=== PATIENT | male | born 1970 | race Caucasian/White ===

== ENCOUNTER 2019-07-29 22:03 | Observation (INO) | payer MEDICARE, MEDICAID, SELFPAY ==
[2019-07-29 22:09] VITALS: BP 121/80; PULSE 55; RESP 16; TEMP 36.7; O2SAT 98; BMI 24.3
[2019-07-29 23:13] VITALS: BP 129/85; PULSE 68; RESP 18; TEMP 37; O2SAT 99
--- NOTE | 2019-07-30 01:19 | W.ED.PSYCH ---
HPI - Psych General: Chief Complaint: Psychiatric Symptoms Stated Complaint: psych/ si Time Seen by Provider: 07/29/19 22:18 History of Present Illness: HPI Narrative: 49-year-old male identifying is a female named Missy presents as a transfer/direct admit to our [facility] with required screening in the ER. He is currently not under 96-hour hold, and was described as a voluntary admission. He had taken by the outside facility's report 5050 mg hydroxyzine, and 5025 mg hydroxyzine and an intentional overdose. The patient tells me he took 1250 mg hydroxyzine so that he could rest following being upset regarding a discussion with his who is in group home. He denies suicidality at this time. MD complaint: feels depressed Onset (ago): day(s) (1) Duration: constant Relieving factors: none Exacerbating factors: none Context: recent drug abuse and significant life stressor Associated psychiatric symptoms: depression Associated symptoms: Reports depression; Deny visual hallucinations or homicidal ideation If self harm: intentional overdose Review of Systems Const: Denies: fever(s) or chills Eyes: Denies: change in vision ENMT: Denies: change in hearing, post nasal drip or sinus pain Card: Denies: chest pain, palpitations or irregular heart rhythm Resp: Denies: dyspnea, productive cough, non-productive cough or wheezing GI: Denies: abdominal pain, nausea or vomiting : Denies: difficulty urinating Skin/Breast: Denies: rash or pruritus Neuro: Denies: headache(s), dizziness or vertigo Psych: Reports: depression; Denies: visual hallucinations or homicidal ideation [facility] ED PFSH: Social History Smoking and tobacco status: current every day smoker Physical Exam Const: GENERAL APPEARANCE: well developed ORIENTATION/CONSCIOUSNESS: Yes oriented to person, Yes oriented to place and Yes oriented to time HENMT: COMMON NORMALS: normocephalic, external ears normal and Normal external nose present HEAD & SCALP: normocephalic FACE & SINUS: normal facial exam NOSE: Normal external nose present and No nasal discharge present EXTERNAL EAR: Yes external ears normal MOUTH: tongue normal Eye: COMMON NORMALS: Equal, round and reactive pupils present, EOMs intact bilaterally and conjunctivae normal EYELID: eyelids normal CONJUNCTIVA: Yes conjunctivae normal PUPIL: Yes Equal, round and reactive pupils present Neck/C-Spine: GENERAL: No tracheal deviation Chest: COMMONS NORMALS: normal inspection of the chest Resp: EFFORT & INSPECTION: No tachypneic, No respiratory distress, No retractions, No uses accessory muscles and No tracheal deviation Cardio: COMMON NORMALS: regular rate and regular rhythm RATE: regular rate RHYTHM: regular rhythm Neuro: SENSORIUM/ORIENTATION: Yes oriented to person, Yes oriented to place and Yes oriented to time Psych: COMMON NORMALS: Normal thought process present ATTITUDE: Yes Belligerent attititude/behavior present ACTIVITY/MOTOR BEHAVIOR: Yes appropriate eye contact SPEECH: Yes excessive MOOD & AFFECT: Yes Labile affect present THOUGHT PROCESS: Normal thought process present ATTENTION/CONCENTRATION: Yes attention grossly intact INSIGHT: questionable JUDGEMENT: Poor judgement present (Psych) Skin: COMMON NORMALS: no rashes or lesions noted GENERAL SKIN EXAM: no rashes or lesions noted MDM - Psych MDM Narrative: Medical decision making narrative: 49-year-old male transferred through the ER on the way to [facility] as a direct admit. On his arrival to the ER, he stated that he wanted to leave and signed out AGAINST MEDICAL ADVICE. He said that he came here voluntarily and can sign out voluntarily. This patient was [place] as a direct admit [place] 165 [place] to this facility. Though he says he only took 12 hydroxyzine, and not 100, he still admits to taking more than the prescribed amount of hydroxyzine which constitutes very poor judgment. This is essentially an intentional overdose by definition. He was given the option of staying and remaining voluntary, and seeing the psychiatrist in the morning, or affidavit being written as well as 96-hour hold paperwork being drawn up. He at first became quite belligerent, threatening legal actions amongst other things, and was quite verbally abusive to myself and my staff. In the end, he went willingly to the [facility] to be evaluated by psychiatry in the morning. His laboratory from outside facility appears stable. His drug screen was positive for methamphetamine. Discharge Plan Discharge Patient Disposition: Admitted As Inpatient Admit Provider: Joce Mcduffie Clinical Impression: Intentional overdose of drug in tablet form Condition: Stable Discharge Date/Time: 07/29/19 23:19 Coding Level of Care Code ED Branch Logistics Supervisor for [facility] Fwd Exam Comprehensive
[2019-07-30 06:00] VITALS: RESP 19
--- NOTE | 2019-07-30 07:02 | PC.NURSE ---
Patient was pacing arce. Staff asked patient if vitals could be taken. Patient replied, I guess. I don't know why though. Staff explained that we vitals around 10pm and 6am. Patient then stated, Don't get mouthy with me. then removed the blood pressure cup and threw in the floor. Staff took respirations on patient.
[2019-07-30] MEDS: sertraline 100 mg Tablet PO (08:00)
[2019-07-30] MEDS: LORazepam 2 mg Tablet PO (08:00)
--- NOTE | 2019-07-30 08:53 | PM.SDS ---
Short Stay Summary Providers Date of Admit/Discharge: 07/30/19 Attending Provider: Joce Mcduffie MD Chief Complaint: psych/ si HPI History of Present Illness Hernandez Maria is a 49 year old male who identifies himself as female. He apparently got into an argument with his , now in detention, who accused him of infidelity. He says is not true, it upset him and he took an overdose of hydroxyzine. He says that 3 days ago he was angry and impulsive but no longer feels that way. He now denies homicidal or suicidal ideation, plan or intent. I sat down with him and went over the questionnaire for an AMA document, which he signed after I explained to him he would, upon leaving AGAINST MEDICAL ADVICE, relieved the hospital, its personnel and all departments of any responsibility for his wellbeing or health care. He said he understood, and affirmed that he now (3 days later) has no suicidal or homicidal ideation, plan or intent. Review of Systems General: Reports: 10 or more systems reviewed and unremarkable except in HPI and below and ROS unobtainable due to mental status GI: Reports: abdominal pain (Diffuse abdominal pain. Examining physician was unable to localize it. It is attributed to his overdose. And is now resolved.) and nausea (Appears to be attendant to the above discussed overdose. Now resolved.) Psych: Reports: anxiety, depression (He is dysphoric and sad about his relationship with his , now in detention, who accuses him of infidelity.), mood swings (The patient gets precipitously angry when he feels we do not care, which we do but are unable to convince him.), suicidal ideation (3 days ago he took an overdose but now denies any suicidal ideation, plan or intent.) and homicidal ideation (The patient has never had any homicidal ideation, plan or intent.) Home Meds/Allergies Home Medications and Allergies Home Medications Medication Instructions Recorded Confirmed Type Zoloft 100 mg PO DAILY 07/29/19 07/30/19 History Zyprexa 10 mg PO QPM 07/30/19 07/30/19 History albuterol sulfate 2 puff INHALATION QID PRN 07/30/19 07/30/19 History Allergies Allergy/AdvReac Type Severity Reaction Status Date / Time aspirin Allergy Unknown Verified 07/29/19 22:09 chlorpromazine Allergy Unknown Verified 07/29/19 22:09 [From Thorazine] ibuprofen Allergy Unknown Verified 07/29/19 22:09 naproxen Allergy Unknown Verified 07/29/19 22:09 Penicillins Allergy Unknown Verified 07/29/19 22:09 PFSH Acute PFSH: Social History Smoking and tobacco status: current every day smoker Vitals/I&O/Wt Last Vital Signs Temp 98.6 F 07/29/19 23:13 Pulse 68 07/29/19 23:13 Resp 19 H 07/30/19 06:00 BP 129/85 07/29/19 23:13 Pulse Ox 99 07/29/19 23:13 Weight last 48 hrs Weight 165 lb Physical Exam Narrative: EXAM NARRATIVE: Vital signs and nursing note reviewed. This is a 49-year-old male identified as female who is in no acute distress, is well-developed and not ill-appearing. Head normocephalic and atraumatic. Eyes pupils equal regular reactive to light. Extraocular movements intact. Neck supple no bruits no thyromegaly. Heart normal sinus rhythm. Chest clear to auscultation pulmonary effort is normal. Abdomen, nausea and abdominal pain as described above. No rebound tenderness or organomegaly. Extremities no cyanosis, clubbing or edema. Normal range of motion. Skin shows no lesions or rash. Skin is warm and dry. Neurological: Cranial nerves II to XII intact; no cerebellar, sensory or motor deficit noted. Psych: COMMON NORMALS: Normal thought process present, activity/motor behavior normal, denies hallucinations, denies homicidal ideation and denies suicidal ideation APPEARANCE: Yes grossly normal and Yes disheveled ATTITUDE: Yes engaged and Yes uncooperative ACTIVITY/MOTOR BEHAVIOR: Yes appropriate eye contact SPEECH: Yes loud MOOD & AFFECT: Yes irritable THOUGHT PROCESS: Normal thought process present THOUGHT CONTENT: Yes Normal thought content present ATTENTION/CONCENTRATION: Yes attention grossly intact MEMORY/COGNITION: Yes memory grossly intact INSIGHT: Fair insight present (Psych) JUDGEMENT: Fair judgement present (Psych) OTHER: The patient has a cognitive wherewithal by which she can competently sign out AGAINST MEDICAL ADVICE. Hospital Course Admission Diagnoses: Suicidal overdose. Borderline personality disorder. Hospital Course: This was a crisis intervention. The crisis has faded and he wants his [employer] interests returned to him. Discharge Summary: AGAINST MEDICAL ADVICE Diagnoses at Discharge Discharge Diagnosis (1) Intentional overdose of drug in tablet form: Status: Acute Problem details: The patient has resolved his immediate crisis. He denies suicidal ideation, plan or intent. (2) Borderline personality disorder: Status: Acute Problem details: The patient was in crisis, denies suicidal ideation, plan or intent and is competent to sign out AGAINST MEDICAL ADVICE, about which he is been extensively educated. He nonetheless will wants his [employer] interest to be returned to him. Discharge Plan Discharge Patient Disposition: Home, Self-Care Condition: Stable Prescriptions: Continued Zoloft 100 mg Tablet 100 mg PO DAILY RF: 0 Zyprexa 10 mg Tablet 10 mg PO QPM RF: 0 albuterol sulfate 90 mcg/actuation Hfa Aerosol Inhaler 2 puff INHALATION QID PRN (Reason: Shortness Of Breath) RF: 0 Discharge Orders: Discharge Order (Routine); Ordered 07/30/19 Ordered By: Gabriel Rios Discharge Diet: Usual diet Discharge Activity: Resume usual activity Discharge Date/Time: 07/30/19 09:07 Attestations Medical Necessity Statement*: Given the information provided to us by referring hospital. This was clearly an admission necessitated by the need to evaluate this patient. Time Spent in Patient Care*: critical care time (At least 50 minutes spent in critical intervention with this patient.) Critical Care Time (min): 50 Status at Discharge: Cognitive status at discharge: cognitively intact, Behavioral status at discharge: cooperative and can be uncooperative, Functional status at discharge: independent ambulation Overall status at discharge: patient is progressing back to baseline Quality Metrics Clinical Quality Measures: During this hospital stay, did patient experience: None Coding Level of Care Code Acute Name [facility] for [facility] Fwd Diagnoses Intentional overdose of drug in tablet form T50.902A Borderline personality disorder F60.3
--- NOTE | 2019-07-30 08:57 | PC.RESP ---
Smoking Cessation information packet sent to patient with a schedule of classes.
[2019-07-30 09:06] VITALS: RESP 19
== END 2019-07-30 09:07 | disposition home or self-care (01) ==
LOC: ER 22:57 → NP 07-30 01:36
PROVIDERS: Admitting Provider Psychiatry & Neurology Psychiatry; Visit Provider Psychiatry & Neurology Psychiatry
DX: T50.902A Poisoning by unspecified drugs, medicaments and biological substances, intentional self-harm, initial encounter (principal); F60.3 Borderline personality disorder; Z53.29 Procedure and treatment not carried out because of patient's decision for other reasons; F17.210 Nicotine dependence, cigarettes, uncomplicated; R10.84 Generalized abdominal pain
CPT/HCPCS: 12345; 36415; 80053; 83690; 85025; 96361; 96374; 96375; 96376; 99283; 99284; G0378; J2270; J2405; J2930; J3535; J7030

== ENCOUNTER 2019-07-30 10:39 | Emergency (ER) | payer MEDICARE, MEDICAID, SELFPAY ==
[2019-07-30 10:52] VITALS: BP 136/70; PULSE 86; RESP 16; TEMP 36.8; O2SAT 98
--- NOTE | 2019-07-30 10:59 | W.ED.NAVMDI ---
HPI - Nausea/Vomiting/Diarrhea General: Chief complaint: Nausea/Vomiting/Diarrhea Stated complaint: N/V Time Seen by Provider: 07/30/19 10:53 Source: patient Mode of arrival: ambulatory Limitations: no limitations History of Present Illness: HPI Narrative: 49-year-old male who has a history of Crohn's disease states that he has been having nausea vomiting abdominal pain feels like he has a Crohn's flare. Patient denies any fevers or improving or worsening factors. He states pain is cramping in nature and rates it a 2 out of 10. MD elicited complaint: nausea, vomiting and abdominal pain Associated nausea: Yes Associated symtoms: Reports nausea; Denies chest pain, dysuria or headache(s) Review of Systems Const: Denies: fever(s), chills, body aches or change in appetite Eyes: Denies: blurry vision or eye discomfort ENMT: Denies: throat pain or dental pain Card: Denies: chest pain Resp: Denies: dyspnea GI: Reports: abdominal pain, nausea and vomiting : Denies: dysuria Musc: Denies: neck pain or back pain Skin/Breast: Denies: rash Neuro: Denies: headache(s) Psych: Denies: depression Alonso/Lymph: Denies: easy bruising All/Imm: Denies: urticaria PFSH ED PFSH: Social History Smoking and tobacco status: current every day smoker Physical Exam Const: COMMON NORMALS: no acute distress, patient oriented x3 and healthy appearing HENMT: COMMON NORMALS: normocephalic and atraumatic HEAD & SCALP: normocephalic and atraumatic Eye: COMMON NORMALS: Equal, round and reactive pupils present and EOMs intact bilaterally PUPIL: Yes Equal, round and reactive pupils present Neck/C-Spine: COMMON NORMALS: full ROM and supple Chest: COMMONS NORMALS: normal inspection of the chest and normal palpation of entire chest wall Resp: COMMON NORMALS: normal respiratory effort, No retractions, No use of accessory muscles and clear to auscultation bilaterally AUSCULTATION: clear to auscultation bilaterally Cardio: COMMON NORMALS: regular rate, regular rhythm and No murmurs present (Cardio) RATE: regular rate RHYTHM: regular rhythm GI: COMMON NORMALS: Normal to inspection, nondistended, normoactive bowel sounds present, Soft to palpation, non-tender and no masses PALPATION: Yes Soft to palpation Extremity: COMMON NORMALS: normal to inspection and full ROM Neuro: COMMON NORMALS: patient oriented x3, moves all extremities and no focal motor deficits Psych: COMMON NORMALS: mental status grossly normal, Normal thought process present and cooperative THOUGHT PROCESS: Normal thought process present Skin: COMMON NORMALS: no rashes or lesions noted and no wounds GENERAL SKIN EXAM: no rashes or lesions noted Course Vital Signs: Vital signs: Vital Signs Temperature 98.2 F 07/30/19 10:52 Pulse Rate 61 07/30/19 11:00 Respiratory Rate 18 07/30/19 11:34 Blood Pressure 129/77 07/30/19 11:00 Pulse Oximetry 99 07/30/19 11:00 MDM - Nausea/Vomiting/Diarrhea MDM Narrative: Medical decision making narrative: Patient presents with abdominal pain that is chronic in nature likely from Crohn's. Patient is well-appearing here and exam is benign. Patient's blood work is normal. Patient is stable for discharge and is to follow-up with primary care doctor in 3 to 5 days return if worsening. Lab Data: Labs: Lab Results 07/30/19 07/30/19 Range/Units 11:30 11:30 WBC 6.6 (4.0-10.0) 10^3/ uL RBC 4.27 (4.1-5.3) 10^6/u L Hgb 11.9 (11.7-16.6) g/dL Hct 38.9 L (42.0-52.0) % MCV 91.1 (80-94) fL MCH 27.9 L (28.0-34.0) pg MCHC 30.6 (30.0-36.0) g/dL RDW 13.9 (12.1-15.1) % Plt Count 259 (130-400) 10^3/c mm MPV 10.1 (7.4-10.4) fL Neut % (Auto) 71.2 % Lymph % (Auto) 17.9 % [place] % (Auto) 6.8 % Eos % (Auto) 2.3 % Baso % (Auto) 0.3 % Neut # (Auto) 4.7 (1.8-7.7) 10^3/u L Lymph # (Auto) 1.2 (0.8-4.8) 10^3/u L [place] # (Auto) 0.5 (0.2-0.9) 10^3/u L Eos # (Auto) 0.2 (0.0-0.8) 10^3/u L Baso # (Auto) 0.0 (0.0-0.1) 10^3/u L Nucleated RBC % (a uto) 0 % Nucleated RBCs # 0.0 /100WBC Sodium 134 L (136-145) mmol/L Potassium 4.4 (3.5-5.1) mmol/L Chloride 99 (98-107) mmol/L Carbon Dioxide 24 (22-29) mmol/L Anion Gap 15.4 (5-19) BUN 15 (6-20) mg/dL Creatinine 0.6 L (0.7-1.2) mg/dL GFR Calculation 144.4 H (90-130) mL/min Glucose 93 (65-115) mg/dL Calculated Osmolal ity 274 L (285-295) mOsm/k g Calcium 9.2 (8.5-10.5) mg/dL Total Bilirubin 0.2 (0.15-1.2) mg/dL AST 14 (0-40) U/L ALT 16 (0-41) U/L Alkaline Phosphata se 70 (40-130) IU/L Total Protein 6.8 (6.6-8.7) g/dL Albumin 3.8 (3.5-5.2) g/dL Globulin 3.0 (1.3-4.6) g/dL Lipase 39 (13-60) U/L Discharge Plan Discharge Patient Disposition: Home, Self-Care Clinical Impression: Abdominal pain Qualifiers: Abdominal location: generalized Qualified Code(s): R10.84 - Generalized abdominal pain Condition: Stable Prescriptions: No Action sertraline [Zoloft] 100 mg Tablet 100 mg PO DAILY RF: 0 olanzapine [Zyprexa] 10 mg Tablet 10 mg PO QPM RF: 0 albuterol sulfate 90 mcg/actuation Hfa Aerosol Inhaler 2 puff INHALATION QID PRN (Reason: Shortness Of Breath) RF: 0 prednisone 20 mg tablet 60 mg PO DAILY RF: 0 alprazolam 0.5 mg tablet 0.5 mg PO DAILY PRN (Reason: unknown) RF: 0 promethazine 25 mg tablet 25 mg PO Q6H PRN (Reason: Nausea) RF: 0 Discharge Orders: Discharge Order (Routine); Ordered 07/30/19 Ordered By: Ezequiel Osorio Discharge Diet: Advance as tolerated Discharge Activity: Resume usual activity Patient Instructions: Abdominal Pain (ED) Coding Level of Care Code ED Lumber Cutter for [facility] Fwd Exam Comprehensive
[2019-07-30 11:00] VITALS: BP 129/77; PULSE 61; RESP 18; O2SAT 99
[2019-07-30] MEDS: sodium chloride 0.9% 1,000 ML 999 ML IV (11:33)
[2019-07-30 11:34] VITALS: RESP 18
[2019-07-30] MEDS: ondansetron 2 mg/ML SDV 2 mL 4 MG IVP (11:34)
[2019-07-30] MEDS: morphine 4 mg/mL SDV 1 mL IVP ×2 (11:34→13:16)
[2019-07-30 11:50] LABS: Basophils % 0.3 %; Eosinophils # 0.2 10^3/uL (0.0-0.8); Eosinophils % 2.3 %; Hematocrit 38.9 % (42.0-52.0); Hemoglobin 11.9 g/dL (11.7-16.6); Lymphocytes # 1.2 10^3/uL (0.8-4.8); Lymphocytes % 17.9 %; Mean Corpuscular HGB Conc 30.6 g/dL (30.0-36.0); Mean Corpuscular Hemoglobin 27.9 pg (28.0-34.0); Mean Corpuscular Volume 91.1 fL (80-94); Mean Platelet Volume 10.1 fL (7.4-10.4); Monocytes # 0.5 10^3/uL (0.2-0.9); Monocytes % 6.8 %; Neutrophils # 4.7 10^3/uL (1.8-7.7); Neutrophils % 71.2 %; Nucleated Red Blood Cells % 0 %; Platelet Count 259 10^3/cmm (130-400); Red Blood Count 4.27 10^6/uL (4.1-5.3); Red Cell Distribution Width 13.9 % (12.1-15.1); White Blood Count 6.6 10^3/uL (4.0-10.0)
[2019-07-30 12:04] LABS: Alanine Aminotransferase 16 U/L (0-41); Albumin Level 3.8 g/dL (3.5-5.2); Alkaline Phosphatase 70 IU/L (40-130); Anion Gap 15.4 (5-19); Aspartate Amino Transferase 14 U/L (0-40); Blood Urea Nitrogen 15 mg/dL (6-20); Calcium 9.2 mg/dL (8.5-10.5); Carbon Dioxide 24 mmol/L (22-29); Chloride 99 mmol/L (98-107); Glomerular Filtration Rate 144.4 mL/min (90-130); Glucose 93 mg/dL (65-115); Lipase 39 U/L (13-60); Osmolality Calculated 274 mOsm/kg (285-295); Potassium 4.4 mmol/L (3.5-5.1); Sodium 134 mmol/L (136-145); Total Bilirubin 0.2 mg/dL (0.15-1.2); Total Protein 6.8 g/dL (6.6-8.7)
[2019-07-30 13:16] VITALS: RESP 18
[2019-07-30 13:41] VITALS: BP 127/77; RESP 18
--- NOTE | 2019-07-30 15:26 | DCPLANNER ---
manager mechanical seen patient, due to patient request. manager mechanical spoke with patient, was asked for a list of resources for that area that helped with housing, the phone number to [facility]. manager mechanical called [facility], transferred phone call into patients room, so that patient could do the phone interview. Patient did not meet criteria to go to [facility]. manager mechanical gave patient the phone number to [facility] and some other low rent housing phone numbers. manager mechanical was then asked to get the phone number to [facility] in [facility], counter caser called the assisted was told to call back. Patient called a assisted in [place] and was told that they were not accepting any patients outside of their county due to the Covid. Patient stated that he wanted to go to his aunts house in [place]. manager mechanical gave the address to patients nurse for the medicaid transportation. Patient no longer wanted the phone number to [facility].
== END 2019-07-30 13:31 | disposition home or self-care (01) ==
PROVIDERS: Emergency Provider Emergency Medicine
DX: R10.84 Generalized abdominal pain (principal); F17.210 Nicotine dependence, cigarettes, uncomplicated
CPT/HCPCS: 12345; 36415; 80053; 83690; 85025; 96361; 96374; 96375; 96376; 99283; J2270; J2405; J2930; J7030

== ENCOUNTER 2020-09-01 10:30 | Inpatient (IN) | payer MEDICARE, SELFPAY ==
[2020-09-01 10:33] VITALS: BP 102/77; PULSE 82; RESP 18; TEMP 36.8; O2SAT 98
[2020-09-01 14:00] VITALS: BP 118/74; PULSE 69; RESP 20; TEMP 36.9; O2SAT 99
--- NOTE | 2020-09-01 16:45 | PM.NHP ---
Providers/Chief Complaint Admitting Physician: Joce Mcduffie MD [facility] NPU History of Present Illness Hernandez Maria is a 50 year old male presented to an outside hospital endorsing suicidality reporting that he does not feel like he wants to go home. He endorsed that if he was discharged he would not be able to keep himself safe. He was transferred to [facility] and ultimately admitted to the neuropsychiatric unit for definitive treatment of those issues. Today he presents quite irritable and a very poor historian. First of all he identifies himself as transgender 7 this point forward I will speak with him as Missy and his pronoun is she. She reports that she has probably been hospitalized 9 times in the first 1 being in 1992 and the last one being about a year ago. She reports that she gets her treatment in [place] often in the [facility] system. She reports being on prazosin and Zoloft BuSpar and one other medication. She reports smoking about half a pack of cigarettes a day denies alcohol, endorses marijuana but denies any other illicit drug use. But it actually said that she would start answering questions a different way because she was mad at this auto service writer for asking questions so the actual answer about illicit drug use was maybe, going to rehab was maybe in no response about having a DUI. She reports having about 4 suicide attempts in her life but did not endorse when the last one was. She does endorse significant suicidal thoughts but could not give any reason why things were worse now after going a year without being in the hospital. She would not discuss medication changes but I did explain that I would explore the current medications and make recommendations. Psychiatric history: As above. Substance abuse history: As above. Family history: He denied family history of mental health or addiction issues but did report a history of suicide attempts or completions in the family but without the specifics. Developmental history: There were no problems with the , or delivery, learned to walk and talk and met developmental milestones on time, and denies need for speech therapy, learning support, emotional support or special education classes. Psychosocial history: She reports that her parents were together and that she is the only product of that union. She endorses that her childhood was fine and denies any emotional, physical or sexual abuse. She denied getting her high school diploma reporting her GED. She reports being a transfemale with her longest relationship being 5 years. She never been , she never had children, she never done and she denies any hoahaoism Kristopher system. She reports that she never had a job. When asked about living arrangements she reported none of my business. Legal history: She reported there was none of my business about her legal history. Medical history: Denied. Meds NPU Home Medications Medication Instructions Recorded Confirmed Last Taken Type sertraline [Zoloft] 100 mg PO DAILY 07/29/19 07/30/19 07/30/19 History albuterol sulfate 2 puff INHALATION QID PRN 07/30/19 07/30/19 07/27/19 History alprazolam 0.5 mg PO DAILY PRN 07/30/19 07/30/19 Unknown History olanzapine [Zyprexa] 10 mg PO QPM 07/30/19 07/30/19 07/27/19 History prednisone 60 mg PO DAILY 07/30/19 07/30/19 07/30/19 History promethazine 25 mg PO Q6H PRN 07/30/19 07/30/19 Unknown History Allergies Allergy/AdvReac Type Severity Reaction Status Date / Time aspirin Allergy Unknown Verified 07/30/19 11:43 chlorpromazine Allergy Unknown Verified 07/30/19 11:43 [From Thorazine] ibuprofen Allergy Unknown Verified 07/30/19 11:43 ketorolac [From Toradol] Allergy ALGY-Rash Verified 07/30/19 11:43 naproxen Allergy Unknown Verified 07/30/19 11:43 Penicillins Allergy Unknown Verified 07/30/19 11:43 PFSH NPU PFSH: Social History Smoking and tobacco status: current every day smoker Mental Status Exam MSE Comments: This is a well-nourished, well-developed white transfemale in hospital scrubs with limited grooming and eye contact. No abnormal movements except for psychomotor retardation and some psychomotor agitation with questions. Uncooperative with exam in moderate distress at times. Speech was increased rate and volume. Mood described as past at you, affect congruent. Thought process organized. Thought content: Patient endorsed suicidal but denied homicidal ideation, there were no delusions reported noted, she denied any auditory visualizations. Attention and concentration were intact and memory appeared reliable but none were formally tested. She is alert and oriented x3. Insight and judgment are impaired, impulse control is impaired. Vitals/I&O/Wt Last Vital Signs Temp 98.4 F 09/01/20 14:00 Pulse 69 09/01/20 14:00 Resp 20 H 09/01/20 14:00 BP 118/74 09/01/20 14:00 Pulse Ox 99 09/01/20 14:00 Weight last 48 hrs Weight 76.657 kg A&P Assessment and plan (1) History of bipolar disorder: Status: Acute (2) Borderline personality disorder: Status: Acute Additional A&P Information This is a 50-year-old white transfemale with a long history of mental health and possible addiction issues who presents endorsing lethality but not giving much background to the symptoms and essentially being a hostile witness for the entirety of the exam. 1. Continue current medication. 2. Continue every 15 minute checks for safety. 3. Encourage individual, group and milieu therapies. 4. Encourage sober living treatment after discharge at the highest level of care to which he is willing to commit. Involuntary Hold Information 96 Hour Hold: 96 Hour Involuntary Admission: No Attestations NPU Medical Necessity Statement*: Inpatient hospitalization is medically necessary and the clinically appropriate intervention at this time. We will monitor medications and make changes as indicated. Patient will be in the hospital for over two midnights. Likely length of stay 3 to 5 days. Coding Level of Care Code Acute [employer] Service Team Member for Kate Palacios Diagnoses History of bipolar disorder Z86.59 Borderline personality disorder F60.3
[2020-09-01 20:54] VITALS: BP 113/66; PULSE 63; RESP 15; TEMP 36.4; O2SAT 99
[2020-09-02 06:00] VITALS: BP 115/67; PULSE 62; RESP 16; TEMP 37.1; O2SAT 95
--- NOTE | 2020-09-02 13:00 | P.PN_ITS ---
Mental Status Exam MSE Comments: This is a well-nourished, well-developed white transfemale in hospital scrubs with limited grooming and eye contact. No abnormal movements except for psychomotor retardation and some psychomotor agitation with questions. Uncooperative with exam in moderate distress at times. Speech was increased rate and volume. Mood described as past at you, affect congruent. Thought process organized. Thought content: Patient endorsed suicidal but denied homicidal ideation, there were no delusions reported noted, she denied any auditory visualizations. Attention and concentration were intact and memory appeared reliable but none were formally tested. She is alert and oriented x3. Insight and judgment are impaired, impulse control is impaired. Vitals/I&O/Wt Last Vital Signs Temp 98.8 F 09/02/20 06:00 Pulse 62 09/02/20 06:00 Resp 16 09/02/20 06:00 BP 115/67 09/02/20 06:00 Pulse Ox 95 09/02/20 06:00 Weight last 48 hrs Weight 76.657 kg Involuntary Hold Information 96 Hour Hold: 96 Hour Involuntary Admission: No Attestations NPU Medical Necessity Statement*: Inpatient hospitalization is medically necessary and the clinically appropriate intervention at this time. We will monitor medications and make changes as indicated. Patient will be in the hospital for over two midnights. Likely length of stay 3 to 5 days. Coding Level of Care Code Acute [facility] Wellness Coordinator for Kate Palacios
--- NOTE | 2020-09-02 13:44 | P.DS_ITS ---
Diagnoses at Discharge Discharge Diagnosis (1) History of bipolar disorder: Status: Acute (2) Borderline personality disorder: Status: Acute Permanent problem details: The patient was in crisis, denies suicidal ideation, plan or intent and is competent to sign out AGAINST MEDICAL ADVICE, about which he is been extensively educated. He nonetheless will wants his [place] interest to be returned to him. Reason for Visit Reason for Visit: Brief History: History of Present Illness Hernandez Maria is a 50 year old male presented to an outside hospital endorsing suicidality reporting that he does not feel like he wants to go home. He endorsed that if he was discharged he would not be able to keep himself safe. He was transferred to [facility] and ultimately admitted to the neuropsychiatric unit for definitive treatment of those issues. Today he presents quite irritable and a very poor historian. First of all he identifies himself as transgender 7 this point forward I will speak with him as Missy and his pronoun is she. She reports that she has probably been hospitalized 9 times in the first 1 being in 1992 and the last one being about a year ago. She reports that she gets her treatment in [place] often in the [facility] system. She reports being on prazosin and Zoloft BuSpar and one other medication. She reports smoking about half a pack of cigarettes a day denies alcohol, endorses marijuana but denies any other illicit drug use. But it actually said that she would start answering questions a different way because she was mad at this typewriter tester for asking questions so the actual answer about illicit drug use was maybe, going to rehab was maybe in no response about having a DUI. She reports having about 4 suicide attempts in her life but did not endorse when the last one was. She does endorse significant suicidal thoughts but could not give any reason why things were worse now after going a year without being in the hospital. She would not discuss medication changes but I did explain that I would explore the current medications and make recommendations. Psychiatric history: As above. Substance abuse history: As above. Family history: He denied family history of mental health or addiction issues but did report a history of suicide attempts or completions in the family but without the specifics. Developmental history: There were no problems with the , or delivery, learned to walk and talk and met developmental milestones on time, and denies need for speech therapy, learning support, emotional support or special education classes. Psychosocial history: She reports that her parents were together and that she is the only product of that union. She endorses that her childhood was fine and denies any emotional, physical or sexual abuse. She denied getting her high school diploma reporting her GED. She reports being a transfemale with her longest relationship being 5 years. She never been , she never had children, she never done and she denies any alevism Kristopher system. She reports that she never had a job. When asked about living arrangements she reported none of my business. Legal history: She reported there was none of my business about her legal history. Medical history: Denied. Hospital Course Hospital Course Missy presented to an outside hospital endorsing depression and suicidality. She was transferred to [facility] and ultimately admitted to the neuropsychiatric unit for definitive treatment of those issues. She slowly acclimated to the individual, group and milieu therapies provided. She was able to talk to her significant other with whom she had been fighting and was the nidus for her decline. She reported that they were doing better and she was feeling better. She did not require or request any medications or changes in her current treatment. She was evaluated and deemed to be absent lethality and was able to contract for safety prior to discharge. She demonstrated marked improvement. During the hospitalization, patient had routine laboratory studies which were within normal limits except for few outliers. Additionally there was a general medical evaluation which was also within normal limits and revealed no new acute processes. Discharge Summary: At the time of discharge, psychosis and lethality were denied. Mood and anxiety were well managed. Patient endorsed a plan to avoid all drugs of abuse and follow-up with the aftercare recommendations of the treatment team. Patient was evaluated and deemed to be absent credible lethality, and had achieved the maximum benefit from an inpatient hospitalization, so was discharged. Involuntary Hold Information 96 Hour Hold: 96 Hour Involuntary Admission: No Mental Status Exam MSE Comments: This is a well-nourished, well-developed white trans female in hospital scrubs with limited grooming and eye contact. No abnormal movements. Uncooperative with exam in no acute distress. Speech was normal rate and volume. Mood described as much better, affect congruent. Thought process organized. Thought content: Patient denied suicidal or homicidal ideation, there were no delusions reported noted, she denied any auditory visualizations. Attention and concentration were intact and memory appeared reliable but none were formally tested. She is alert and oriented x3. Insight and judgment are limited but improving, impulse control is limited but improving. Discharge Data Vitals: Last Vital Signs Temp 98.8 F 09/02/20 06:00 Pulse 62 09/02/20 06:00 Resp 16 09/02/20 06:00 BP 115/67 09/02/20 06:00 Pulse Ox 95 09/02/20 06:00 Discharge Plan Discharge Patient Disposition: Home Condition: Stable Prescriptions: Continued No Known Home Medications RF: 0 Discharge Orders: Discharge Order (Routine); Ordered 09/02/20 Ordered By: Joce Mcduffie Discharge Diet: Regular Discharge Activity: Resume usual activity Patient Instructions: Opioid Safety Discharge Attestations NPU Time Spent in Discharge Care*: less than 30 min Specific Discharge Activities: Specific discharge activities: educating patient, discussing with therapeutic case manager/social workers/dc planners, documenting/other paperwork and evaluating patient/reviewing data Status at Discharge: Cognitive status at discharge: cognitively intact , Behavioral status at discharge: cooperative and can be uncooperative , Coding Level of Care Code Acute [facility] DC note Diagnoses History of bipolar disorder Z86.59 Borderline personality disorder F60.3
[2020-09-02 13:55] VITALS: BP 115/67; PULSE 62; RESP 16; TEMP 37.1; O2SAT 95
== END 2020-09-02 15:02 | disposition home or self-care (01) | DRG 885 ==
PROVIDERS: Admitting Provider Psychiatry & Neurology Psychiatry; Visit Provider Psychiatry & Neurology Psychiatry
DX: F31.9 Bipolar disorder, unspecified (principal); R45.851 Suicidal ideations; F60.3 Borderline personality disorder; F17.200 Nicotine dependence, unspecified, uncomplicated; Z91.19 Patient's noncompliance with other medical treatment and regimen; Z91.5 Personal history of self-harm; Z81.8 Family history of other mental and behavioral disorders

== ENCOUNTER 2020-09-17 11:43 | Inpatient (IN) | payer MEDICARE, SELFPAY ==
[2020-09-17 11:51] VITALS: BMI 25.9
[2020-09-17 11:52] VITALS: BP 101/68; PULSE 105; RESP 17; TEMP 36.5; O2SAT 96
--- NOTE | 2020-09-17 13:28 | P.HP_ITS ---
Providers/Chief Complaint Admitting Physician: Sid Flaherty MD Chief Complaint: si HPI NPU History of Present Illness Hernandez Maria is a 50 year old male to female transgendered individual who wishes to be addressed as Missy, who was transferred from [facility] for treatment of suicidal ideation after being medically stabilized. The [facility] ED note states: Patient arrived to [facility] ED via EMS with chief complaint of suicidal ideations. During assessment patient was alert and oriented x4. Patient reports that she became suicidal earlier today and devised a plan to overdose on meth injection. Patient reports that she has experienced multiple recent stressors that contribute to her depressed mood and increased suicidal ideations. Patient declined discussing details of recent stressors or specific suicidal thoughts other than the plan. Patient reports previous diagnoses that include bipolar disorder and schizophrenia. Patient denies any current HI or hallucinations. Patient denies alcohol use and reports methamphetamine is the only drug being used. Patient meets criteria for inpatient psychiatric admission. Lab done at [facility] on 09/16/2020 shows: UDS was positive for amphetamines and negative for all other substances tested. CBC showed mild normocytic anemia. CMP was essentially normal. EKG was reported to be NSR/normal ECG, QTC equal 399 ms. I met with the patient and her room, and she was only minimally cooperative with the evaluation. She says, life is too painful. She says that she developed suicidal ideation after a relationship ended, but is unwilling to say more about the situation, other than her heart hurts and she is now significantly depressed. She does report disturbance in sleep, appetite, energy, motivation, concentration, as well as feelings of hopelessness, helplessness and worthlessness. She denies auditory and visual hallucinations. She says she takes her medications regularly although she does not feel like they provide any benefit, and neither do they produce any side effects. She was discharged from here on 08/30/2020, although these records not available at this time. It appears there have been other psychiatric hospitalizations, include 2 other in the last few months. She receives outpatient treatment through [facility]. The patient says that she injects meth daily. She denies using alcohol, pills, or other drugs. She says she smokes 3 cigarettes/day. Psychiatric history: As above. Substance use history: As above. Family history: Patient denies mental health or addiction issues on either side of the family and denies suicide attempts or completions in the family. Psychosocial history: The patient says she grew up in [place], went to the 11th grade, was once and had no children. Legal history: Declined to answer Medical history: Patient declined to answer. [facility] records state there is a past medical history of anxiety, coronary artery disease, colitis, COPD, Crohn's disease, depression, hepatitis C, hypertension, hyperlipidemia, irritable bowel syndrome, schizoaffective disorder, and substance abuse. Past surgical history includes urethra dilation and 2009 and 2008. Records also indicate that the patient has multiple previous emergency department visits for evaluation of generalized abdominal pain in the context of Crohn's disease. She is on Humira and does not miss her monthly injections. She has had 9 CTs of the abdomen pelvis in the last 6 months and one ultrasound. Exam is benign and nonsurgical and there is generalized tenderness which is typical for this patient. There was no indication that she would benefit from a repeat CT there is confirmation of bright red blood per rectum, which is assumed to be an exacerbation of Crohn's disease. He was admitted to the medical floor on 09/15/2020 and discharged, having been medically stabilized on 09/16/2020. Review of Systems General: Reports: 10 or more systems reviewed and unremarkable except in HPI and below Meds NPU Home Medications Medication Instructions Recorded Confirmed Last Taken Type divalproex [Depakote ER] 500 mg PO BID 09/17/20 09/18/20 09/16/20 21:00 History adalimumab [Humira] See Rx Instructions .ROUTE .COMPLEX 09/18/20 09/18/20 1 Month Ago History ~08/18/20 hydrochlorothiazide 25 mg PO CONT 09/18/20 09/18/20 09/16/20 09:00 History olanzapine [Zyprexa] 10 mg PO QPM 09/18/20 09/18/20 09/16/20 21:00 History promethazine [Phenergan] 25 mg PO Q6H PRN 09/18/20 09/18/20 Unknown History sertraline [Zoloft] 150 mg PO DAILY 09/18/20 09/18/20 09/16/20 13:00 History Allergies Allergy/AdvReac Type Severity Reaction Status Date / Time aspirin Allergy Unknown Verified 09/17/20 20:48 chlorpromazine Allergy Unknown Verified 09/18/20 00:53 [From Thorazine] ketorolac [From Toradol] Allergy Unknown Verified 09/18/20 00:53 NSAIDS (Non-Steroidal Allergy Unknown Verified 09/17/20 20:48 Anti-Inflamma Penicillins Allergy ALGY-Hives Verified 09/17/20 20:48 tomato Allergy ALGY-Hives Verified 09/17/20 20:48 Mental Status Exam MSE Comments: I met with the patient in their room, and they were not well groomed and dressed wearing hospital scrubs. Only minimally cooperative and then refused to answer further questions, saying the questions pissed me off. Poor eye contact. No psychomotor agitation or retardation Speech is quiet and not pressured Alert, oriented to person, and situation Attention and concentration were limited. Memory is not tested formally. Is able to provide some autobiographical data. Mood is depressed and anxious. Affect is irritable and angry. Thought process: Paucity of thoughts Thought content: Denies auditory and visual hallucinations. Does not answer about suicidal ideation, but was reported to be suicidal yesterday in the ED in [place]. No delusions are noted. Insight and judgment appear to be limited Vitals/I&O/Wt Last Vital Signs Temp 97.7 F 09/17/20 11:52 Pulse 105 H 09/17/20 11:52 Resp 17 09/17/20 11:52 BP 101/68 09/17/20 11:52 Pulse Ox 96 09/17/20 11:52 A&P Assessment and plan (1) Major depressive disorder, recurrent severe without psychotic features: Status: Acute (2) Methamphetamine abuse: Status: Acute (3) Crohn's disease: Status: Acute Additional A&P Information The patient is a 50-year-old transgender woman with a history of methamphetamine use, active Crohn's disease, and suicidal ideation with a plan to overdose on meth after a recent break-up, who was transferred from [facility] after being medically stabilized. 1. Continue current medication. 2. Continue every 15 minute checks for safety. 3. Encourage individual, group and milieu therapies. 4. Encourage sober living treatment after discharge at the highest level of care to which he is willing to commit. Attestations NPU Medical Necessity Statement*: Psychiatric hospitalization is medically necessary to prevent access to lethal means, to reevaluate medication, and to coordinate a safe discharge. Patient will be in the hospital for over 2 midnights. Likely length of stay is 3 to 5 days. Coding Level of Care Code Acute [employer] Redemption Clerk for Kate Palacios Diagnoses Major depressive disorder, recurrent severe without psychotic features F33.2 Methamphetamine abuse F15.10 Crohn's disease K50.90
[2020-09-17 14:00] VITALS: BP 100/70; PULSE 100; RESP 16; TEMP 36.5; O2SAT 96
[2020-09-17 20:27] VITALS: RESP 17
--- NOTE | 2020-09-17 20:27 | PC.NURSE ---
patient refused vitals
[2020-09-18 06:00] VITALS: BP 128/85; PULSE 71; RESP 18; TEMP 36.8; O2SAT 94
[2020-09-18 08:56] LABS: Valproic Acid Level 43.8 ug/mL (50-100)
[2020-09-18] MEDS: sertraline 100 mg Tablet 150 MG PO (12:50)
[2020-09-18] MEDS: hydroCHLOROthiazide 25 mg Tablet PO (12:50)
[2020-09-18 13:38] VITALS: BP 143/90; PULSE 67; RESP 18; TEMP 36.7; O2SAT 96
--- NOTE | 2020-09-18 13:58 | P.PN_ITS ---
Subjective NPU Subjective: Interval history: The patient says her mood is fine, . She says she slept okay last night. She denies any suicidal or homicidal ideation. She denies hearing voices. She denies medication side effects. No cravings to use drugs or alcohol. Mental Status Exam MSE Comments: I met with the patient in their room, and she was a little more cooperative than yesterday, but still gave very short answers. She turned away from me during much of the interview and had poor eye contact. No psychomotor agitation or retardation Speech is quiet and not pressured Alert, oriented to person, and situation Attention and concentration were limited. Memory is not tested formally but is adequate for the exam. Mood is improved; affect is blunted but improved.. Thought process: Paucity of thoughts Thought content: Denies auditory and visual hallucinations. Denies suicidal and homicidal ideation today. No delusions are noted. Insight and judgment appear to be limited Vitals/I&O/Wt Last Vital Signs Temp 97.8 F 09/19/20 06:00 Pulse 72 09/19/20 06:00 Resp 16 09/19/20 06:00 BP 108/71 09/19/20 06:00 Pulse Ox 98 09/19/20 06:00 Weight last 48 hrs Weight 73.028 kg A&P Assessment and plan (1) Crohn's disease: Status: Acute (2) Methamphetamine abuse: Status: Acute (3) Major depressive disorder, recurrent severe without psychotic features: Status: Acute Additional A&P Information The patient is a 50-year-old transgender woman with a history of methamphetamine use, active Crohn's disease, and suicidal ideation with a plan to overdose on meth after a recent break-up, who was transferred from [facility] after being medically stabilized. 1. Continue current medication. 2. Continue every 15 minute checks for safety. 3. Encourage individual, group and milieu therapies. 4. Encourage sober living treatment after discharge at the highest level of care to which he is willing to commit. Involuntary Hold Information 96 Hour Hold: 96 Hour Involuntary Admission: No Attestations NPU Medical Necessity Statement*: Psychiatric hospitalization is medically necessary to prevent access to lethal means, to reevaluate medication, and to coordinate a safe discharge. Patient will be in the hospital for over 2 midnights. Likely length of stay is 1-2 days. Coding Level of Care Code Acute Computer Networker for Kate Palacios Diagnoses Crohn's disease K50.90 Methamphetamine abuse F15.10 Major depressive disorder, recurrent severe without psychotic features F33.2
[2020-09-18] MEDS: divalproex ER 500 mg Tablet (24H) PO (17:27)
[2020-09-18] MEDS: OLANZapine 10 mg TABLET PO (17:27)
[2020-09-18 22:00] VITALS: BP 121/78; PULSE 74; RESP 16; TEMP 37.1; O2SAT 96
[2020-09-19 06:00] VITALS: BP 108/71; PULSE 72; RESP 16; TEMP 36.6; O2SAT 98
[2020-09-19] MEDS: divalproex ER 500 mg Tablet (24H) PO (08:47)
[2020-09-19] MEDS: sertraline 100 mg Tablet 150 MG PO (08:47)
--- NOTE | 2020-09-19 10:46 | P.DS_ITS ---
Diagnoses at Discharge Discharge Diagnosis (1) Crohn's disease: (2) Methamphetamine abuse: (3) Major depressive disorder, recurrent severe without psychotic features: (4) Major depressive disorder, recurrent severe without psychotic features: Status: Resolved (5) Methamphetamine abuse: Status: Chronic (6) Crohn's disease: Status: Chronic Reason for Visit Reason for Visit: si Brief History: Hernandez Maria is a 50 year old male to female transgendered individual who wishes to be addressed as Missy, who was transferred from [facility] for treatment of suicidal ideation after being medically stabilized. The [facility] ED note states: Patient arrived to [facility] ED via EMS with chief complaint of suicidal ideations. During assessment patient was alert and oriented x4. Patient reports that she became suicidal earlier today and devised a plan to overdose on meth injection. Patient reports that she has experienced multiple recent stressors that contribute to her depressed mood and increased suicidal ideations. Patient declined discussing details of recent stressors or specific suicidal thoughts other than the plan. Patient reports previous diagnoses that include bipolar disorder and schizophrenia. Patient denies any current HI or hallucinations. Patient denies alcohol use and reports methamphetamine is the only drug being used. Patient meets criteria for inpatient psychiatric admission. Lab done at [facility] on 09/16/2020 shows: UDS was positive for amphet amines and negative for all other substances tested. CBC showed mild normocytic anemia. CMP was essentially normal. EKG was reported to be NSR/normal ECG, QTC equal 399 ms. I met with the patient and her room, and she was only minimally cooperative with the evaluation. She says, life is too painful. She says that she developed suicidal ideation after a relationship ended, but is unwilling to say more about the situation, other than her heart hurts and she is now significantly depressed. She does report disturbance in sleep, appetite, energy, motivation, concentration, as well as feelings of hopelessness, helplessness and worthlessness. She denies auditory and visual hallucinations. She says she takes her medications regularly although she does not feel like they provide any benefit, and neither do they produce any side effects. She was discharged from here on 08/30/2020, although these records not available at this time. It appears there have been other psychiatric hospitalizations, include 2 other in the last few months. She receives outpatient treatment through [facility]. The patient says that she injects meth daily. She denies using alcohol, pills, or other drugs. She says she smokes 3 cigarettes/day. Psychiatric history: As above. Substance use history: As above. Family history: Patient denies mental health or addiction issues on either side of the family and denies suicide attempts or completions in the family. Psychosocial history: The patient says she grew up in [place], went to the 11th grade, was once and had no children. Legal history: Declined to answer Medical history: Patient declined to answer. [facility] records state there is a past medical history of anxiety, coronary artery disease, colitis, COPD, Crohn's disease, depression, hepatitis C, hypertension, hyperlipidemia, irritable bowel syndrome, schizoaffective disorder, and substance abuse. Past surgical history includes urethra dilation and 2009 and 2008. Records also indicate that the patient has multiple previous emergency department visits for evaluation of generalized abdominal pain in the context of Crohn's disease. She is on Humira and does not miss her monthly injections. She has had 9 CTs of the abdomen pelvis in the last 6 months and one ultrasound. Exam is benign and nonsurgical and there is generalized tenderness which is typical for this patient. There was no indication that she would benefit from a repeat CT there is confirmation of bright red blood per rectum, which is assumed to be an exacerbation of Crohn's disease. He was admitted to the medical floor on 09/15/2020 and discharged, having been medically stabilized on 09/16/2020. Hospital Course Hospital Course Hernandez Maria is a 50 year old male to female transgendered individual who wishes to be addressed as Missy, who was transferred from [facility] for treatment of suicidal ideation after being medically stabilized. She was admitted to the neuropsychiatric unit for definitive treatment of these issues. On the unit she slowly acclimated to the individual, group and milieu therapies. She mostly stayed in bed in her room, but her mood did improve and her suicidal ideation resolved. She was receptive to treatment team recommendations and was able to contract for safety prior to discharge. During the hospitalization, patient had routine laboratory studies which were within normal limits except for few outliers. Additionally there was a general medical evaluation which was also within normal limits and revealed no new acute processes. Discharge Summary: At the time of discharge, psychosis and lethality were denied. Mood and anxiety were well managed. Patient endorsed a plan to avoid all drugs of abuse and follow-up with the aftercare recommendations of the treatment team. Patient was evaluated and deemed to be absent credible lethality, and had achieved the maximum benefit from an inpatient hospitalization, so was discharged. On the day of discharge, the patient felt dizzy and was noted to have some orthostatic hypotension. The patient made a plan to follow up with her PCP. We will hold HCTZ until that appointment, they can decide whether to continue it. Involuntary Hold Information 96 Hour Hold: 96 Hour Involuntary Admission: No Mental Status Exam MSE Comments: I met with the patient in their room, and she was fairly cooperative with poor eye contact. No psychomotor agitation or retardation Speech is quiet and not pressured Alert, oriented to person, and situation Attention and concentration were limited. Memory is not tested formally but is adequate for the exam. Mood is improved; affect is blunted but improved.. Thought process: Paucity of thoughts Thought content: Denies auditory and visual hallucinations. Denies suicidal and homicidal ideation today. No delusions are noted. Insight and judgment appear to be improved. Discharge Data Vitals: Last Vital Signs Temp 97.8 F 09/19/20 06:00 Pulse 72 09/19/20 06:00 Resp 16 09/19/20 06:00 BP 108/71 09/19/20 06:00 Pulse Ox 98 09/19/20 06:00 Discharge Plan Discharge Patient Disposition: Home Condition: Stable Prescriptions: Continued Humira 40 mg/0.8 mL Syringe Kit See Rx Instructions .ROUTE .COMPLEX RF: 0 Zoloft 100 mg Tablet 150 mg PO DAILY 30 Days Qty: 45 RF: 0 Zyprexa 10 mg Tablet 10 mg PO QPM 30 Days Qty: 30 RF: 0 Depakote ER 500 mg tablet extended release 24 hr 500 mg PO BID 30 Days Qty: 60 RF: 0 promethazine 25 mg Tablet 25 mg PO Q6H PRN (Reason: Nausea) 10 Days Qty: 40 RF: 0 Held hydrochlorothiazide 25 mg Tablet 25 mg PO CONT RF: 0 Hold Instructions: Resume on 09/29/20. See primary care doctor about low blood pressure before starting this medicine again. No Action No Known Home Medications RF: 0 Discharge Orders: Discharge Order (Routine); Ordered 09/19/20 Ordered By: Sid Flaherty Referrals: [facility] [Other] - 08/24/21 12:20 pm (Medication Management) Discharge Diet: Usual diet Discharge Activity: Resume usual activity Patient Instructions: Opioid Safety Discharge Attestations NPU Time Spent in Discharge Care*: less than 30 min Specific Discharge Activities: Specific discharge activities: educating patient, discussing with sample case porter/social workers/dc planners, documenting/other paperwork and evaluating patient/reviewing data Status at Discharge: Cognitive status at discharge: cognitively intact , Behavioral status at discharge: cooperative , Functional status at discharge: independent ambulation Overall status at discharge: patient is back to baseline Coding Level of Care Code Acute Chg DC note Diagnoses Crohn's disease K50.90 Methamphetamine abuse F15.10 Major depressive disorder, recurrent severe without psychotic features F33.2 Major depressive disorder, recurrent severe without psychotic features F33.2 Methamphetamine abuse F15.10 Crohn's disease K50.90
[2020-09-19 11:29] VITALS: BP 108/71; PULSE 72; RESP 16; TEMP 36.6; O2SAT 98
== END 2020-09-19 12:40 | disposition home or self-care (01) | DRG 885 ==
PROVIDERS: Admitting Provider Psychiatry & Neurology Child & Adolescent Psychiatry; Visit Provider Psychiatry & Neurology Child & Adolescent Psychiatry
DX: F33.2 Major depressive disorder, recurrent severe without psychotic features (principal); R45.851 Suicidal ideations; K50.911 Crohn's disease, unspecified, with rectal bleeding; F25.9 Schizoaffective disorder, unspecified; F15.14 Other stimulant abuse with stimulant-induced mood disorder; F17.210 Nicotine dependence, cigarettes, uncomplicated; F41.9 Anxiety disorder, unspecified; I95.1 Orthostatic hypotension; I25.10 Atherosclerotic heart disease of native coronary artery without angina pectoris; J44.9 Chronic obstructive pulmonary disease, unspecified; B19.20 Unspecified viral hepatitis C without hepatic coma; I10 Essential (primary) hypertension; E78.5 Hyperlipidemia, unspecified; K58.9 Irritable bowel syndrome, unspecified; Z63.0 Problems in relationship with spouse or partner
CPT/HCPCS: 36415; 80164

== ENCOUNTER 2022-06-24 16:15 | Inpatient (IN) | payer MEDICARE, MEDICAID, SELFPAY ==
[2022-06-24 20:55] VITALS: BMI 19.8
[2022-06-24 22:00] VITALS: BP 130/84; PULSE 90; RESP 17; O2SAT 97
--- NOTE | 2022-06-24 23:15 | PC.NURSE ---
5-11-23 at 2315 Patient 96 Hour Hold Rights read to patient with a copy of the same provided to patient. electronic intelligence officer Chuy Mcduffie present at bedside for reading of Rights.
[2022-06-25 06:00] VITALS: RESP 15
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
[2022-06-25 14:00] VITALS: RESP 16
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
[2022-06-25] MEDS: sertraline 100 mg Tablet 150 MG PO (16:53)
[2022-06-25] MEDS: sulfamethoxazole-trimeth DS 160-800 mg Tablet 1 TAB PO (20:10)
[2022-06-25] MEDS: prazosin 1 mg Capsule PO (20:10)
[2022-06-25] MEDS: OLANZapine 10 mg TABLET PO (20:10)
[2022-06-25 22:00] VITALS: RESP 14
[2022-06-26 06:00] VITALS: BP 152/104; PULSE 103; RESP 15; O2SAT 96
[2022-06-26] MEDS: sulfamethoxazole-trimeth DS 160-800 mg Tablet 1 TAB PO ×2 (09:15→18:14)
[2022-06-26] MEDS: sertraline 100 mg Tablet 150 MG PO (09:15)
[2022-06-26 14:00] VITALS: BP 143/74; PULSE 82; RESP 18; TEMP 36.6; O2SAT 98
--- NOTE | 2022-06-26 14:43 | W.PM.NPUPNS ---
Subjective NPU Subjective: Patient is a 52-year-old transgender female with bipolar depression and methamphetamine abuse admitted with depression and suicidal ideation. Patient continued to isolate herself on the milieu. She had struggled with maintenance of self-care. She had been eating and stated that she continued to feel depressed. She had reported no feelings of helplessness. She had endorsed having PTSD related symptoms that remained. She had been irritable and stated that she remained angry. She had reported that she had never recovered from the loss of her boyfriend several years ago. She denied any visual or auditory hallucinations at this time. Mental Status Exam MSE Comments: This is a surly thin white transgender female with poor hygiene unkempt appearance who appeared minimally cooperative again on interview. Her gait was within normal limits her hygiene was poor. She was missing several teeth. There was no evidence of any abnormal involuntary motor movements tics or tremors appreciated. Her speech was normal in regards to volume and prosody and diminished in regards to rate. Her mood was described fine. Her affect was mood incongruent and irritable. She did not appear to be responding to internal stimuli. There was no evidence of any overt delusions. Common themes expressed during the interview included feelings of abandonment. Her thought process was linear and logical but superficial. Her thought content showed no evidence of suicidal ideation with no active homicidal ideation. She was alert and oriented to person and place along with the year and month but not date or day of the week. Her insight appeared feeble. Her judgment is poor. Her impulse control was poor. Vitals/I&O/Wt Last Vital Signs Pulse 103 H 06/26/22 06:00 Resp 15 06/26/22 06:00 BP 152/104 06/26/22 06:00 Pulse Ox 96 06/26/22 06:00 O2 Del Method Room Air 06/26/22 06:00 Weight last 48 hrs Weight 75 kg Weight 55.792 kg A&P Assessment and plan (1) Bipolar disorder, current episode depressed, mild or moderate severity, unspecified: (2) Borderline personality disorder: (3) Methamphetamine abuse: (4) Crohn's disease: (5) History of bipolar disorder: Plan This is a 52-year-old transgender female admitted with suicidal ideation and involuntarily with a history of cluster B traits along with a reported history of bipolar disorder currently on medications while continuing to use methamphetamine. The patient had reported a decline in mood since stopping her medications 2 days prior to arriving at the [facility]. She will continue to require inpatient hospitalization. 1.? ? Engage? patient in individual ,milieu, and group therapy ?2. ? Restart current psychiatric medications ?3. ? TO-15 minute checks on the unit. ?4.? Recommend sober living treatment at the highest level of care to which the patient is willing to commit. 5. ? [facility] protocol, Involuntary Hold Information 96 Hour Hold: 96 Hour Involuntary Admission: Yes 96 Hour Hold Ending Date: 06/30/22 96 Hour Hold Ending Time: 20:30 Attestations NPU Medical Necessity Statement*: Inpatient hospitalization is medically necessary and deemed to be the clinically appropriate intervention at this time. We will monitor initiate medications and make changes as indicated. Her likely length of stay is 7 to 10 days. Coding Level of Care Code Acute Code for g Fwd Diagnoses Bipolar disorder, current episode depressed, mild or moderate severity, unspecified F31.30 Borderline personality disorder F60.3 Methamphetamine abuse F15.10 Crohn's disease K50.90 History of bipolar disorder Z86.59
[2022-06-26 20:15] VITALS: BP 116/78; PULSE 114; RESP 18; TEMP 36.7; O2SAT 95
[2022-06-27] MEDS: sulfamethoxazole-trimeth DS 160-800 mg Tablet 1 TAB PO (08:15)
[2022-06-27] MEDS: sertraline 100 mg Tablet 150 MG PO (08:15)
[2022-06-27 14:00] VITALS: BP 102/65; PULSE 114; RESP 18; TEMP 36.6; O2SAT 98
[2022-06-27 15:34] VITALS: BP 102/65; PULSE 114; RESP 18; TEMP 36.6; O2SAT 98
--- NOTE | 2022-06-27 15:35 | PC.NURSE ---
DISCHARGED FROM UNIT AMA, SIGNED APPROPRIATE AMA PAPERWORK, AMBULATED OFF UNIT WITH ALL PERSONAL BELONGINGS. 96 HOUR HOLD RESCINDED BY PHYSICIAN. PATIENT WISHED WELL
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
== END 2022-06-27 15:38 | disposition left against medical advice (07) | DRG 885 ==
PROVIDERS: Admitting Provider Psychiatry & Neurology Psychiatry; Visit Provider Psychiatry & Neurology Psychiatry
DX: F31.30 Bipolar disorder, current episode depressed, mild or moderate severity, unspecified (principal); K50.90 Crohn's disease, unspecified, without complications; R45.851 Suicidal ideations; F60.3 Borderline personality disorder; F15.10 Other stimulant abuse, uncomplicated; F17.210 Nicotine dependence, cigarettes, uncomplicated; I10 Essential (primary) hypertension; Z79.899 Other long term (current) drug therapy; Z62.819 Personal history of unspecified abuse in childhood; Z91.410 Personal history of adult physical and sexual abuse; Z59.02 Unsheltered homelessness; Z53.29 Procedure and treatment not carried out because of patient's decision for other reasons
CPT/HCPCS: 97165; 99238

== ENCOUNTER 2022-06-27 15:38 | Emergency (ER) | payer MEDICARE, MEDICAID, SELFPAY ==
[2022-06-27 15:41] VITALS: BP 128/70; PULSE 100; TEMP 36.6; O2SAT 99; BMI 24.2
--- NOTE | 2022-06-27 16:02 | W.ED.ABDPA2 ---
HPI - Abdominal Pain General: Chief Complaint: Abdominal Pain Stated Complaint: abd pain Time Seen by Provider: 06/27/22 15:48 Source: patient Mode of arrival: ambulatory Limitations: no limitations History of Present Illness: 52-year-old male states he has a history of chronic abdominal pain and Crohn's he just left AMA from our [facility] 20 minutes ago he states he has been having some abdominal pain is diffuse he states he feels like it is a Crohn's flare he is resting comfortably in the bed does not appear in any pain he rates his pain a 5 out of 10 no diarrhea no fever. Associated Symptoms: Denies chills, diarrhea, dysuria, fever(s), nausea and vomiting Review of Systems Const: Denies: fever(s), chills, body aches or change in appetite ENMT: Denies: throat pain or dental pain Card: Denies: chest pain Resp: Denies: dyspnea GI: Reports: abdominal pain; Denies: nausea, vomiting or diarrhea : Denies: dysuria Musc: Denies: neck pain or back pain Skin/Breast: Denies: rash Neuro: Denies: headache(s) PFSH ED PFSH: Medical History (Updated 06/27/22 @ 16:54 by Ezequiel Osorio MD) Crohn's disease Social History Smoking and tobacco status: current every day smoker Physical Exam Const: COMMON NORMALS: no acute distress, patient oriented x3 and healthy appearing HENMT: COMMON NORMALS: normocephalic and atraumatic HEAD & SCALP: normocephalic and atraumatic Eye: COMMON NORMALS: conjunctivae normal CONJUNCTIVA: Yes conjunctivae normal Neck/C-Spine: COMMON NORMALS: full ROM and supple Chest: COMMONS NORMALS: normal inspection of the chest and normal palpation of entire chest wall Resp: COMMON NORMALS: normal respiratory effort, No retractions, No use of accessory muscles and clear to auscultation bilaterally AUSCULTATION: clear to auscultation bilaterally Cardio: COMMON NORMALS: regular rate, regular rhythm and No murmurs present (Cardio) RATE: regular rate RHYTHM: regular rhythm GI: COMMON NORMALS: Normal to inspection, nondistended, normoactive bowel sounds present, Soft to palpation, non-tender and no masses PALPATION: Yes Soft to palpation Extremity: COMMON NORMALS: normal to inspection and full ROM Neuro: COMMON NORMALS: patient oriented x3, moves all extremities and no focal motor deficits Psych: COMMON NORMALS: mental status grossly normal, Normal thought process present and cooperative THOUGHT PROCESS: Normal thought process present Skin: COMMON NORMALS: no rashes or lesions noted and no wounds GENERAL SKIN EXAM: no rashes or lesions noted Course Vital Signs: Vital signs: Vital Signs Temperature 97.9 F 06/27/22 15:41 Pulse Rate 100 06/27/22 15:41 Blood Pressure 128/70 06/27/22 15:41 Pulse Oximetry 98 06/27/22 16:24 Oxygen Delivery Me thod Room Air 06/27/22 16:24 MDM - Abdominal Pain Medical Decision Making Patient presents here with abdominal pain that is chronic in nature his white count here is normal he is nontender on exam could be a mild Crohn's flare he does not require CT we will place him on steroids he is stable for discharge he is to follow-up with PCP and return if worsening. Medical Records I reviewed the patient's medical records. Lab Data I reviewed the patient's lab results. 06/27/22 16:03 06/27/22 16:03 Labs/Radiology: Laboratory Results WBC 5.4 10^3/uL (4.0-10.0) 06/27/22 16:03 RBC 4.91 10^6/uL (4.1-5.3) 06/27/22 16:03 Hgb 11.1 g/dL (11.7-16.6) L 06/27/22 16:03 Hct 39.8 % (42.0-52.0) L 06/27/22 16:03 MCV 81.1 fl (80-94) 06/27/22 16:03 MCH 22.6 pg (28.0-34.0) L 06/27/22 16:03 MCHC 27.9 g/dL (30.0-36.0) L 06/27/22 16:03 RDW 17.4 % (12.1-15.1) H 06/27/22 16:03 Plt Count 206 10^3/cmm (130-400) 06/27/22 16:03 MPV 9.1 fL (7.4-10.4) 06/27/22 16:03 Neut % (Auto) 51.3 % 06/27/22 16:03 Lymph % (Auto) 34.4 % 06/27/22 16:03 [place] % (Auto) 11.5 % 06/27/22 16:03 Eos % (Auto) 1.7 % 06/27/22 16:03 Baso % (Auto) 0.9 % 06/27/22 16:03 Neut # (Auto) 2.78 10^3/uL (1.8-7.7) 06/27/22 16:03 Lymph # (Auto) 1.9 10^3/uL (0.8-4.8) 06/27/22 16:03 [place] # (Auto) 0.6 10^3/uL (0.2-0.9) 06/27/22 16:03 Eos # (Auto) 0.1 10^3/uL (0.0-0.8) 06/27/22 16:03 Baso # (Auto) 0.1 10^3/uL (0.0-0.1) 06/27/22 16:03 Nucleated RBC % (auto) 0 % 06/27/22 16:03 Nucleated RBCs # 0.0 /100WBC 06/27/22 16:03 Sodium 138 mmol/L (136-145) 06/27/22 16:03 Potassium 4.4 mmol/L (3.5-5.1) 06/27/22 16:03 Chloride 101 mmol/L (98-107) 06/27/22 16:03 Carbon Dioxide 24 mmol/L (22-29) 06/27/22 16:03 Anion Gap 17.4 (5-19) 06/27/22 16:03 BUN 21 mg/dL (6-20) H 06/27/22 16:03 Creatinine 0.8 mg/dL (0.7-1.2) 06/27/22 16:03 GFR Calculation 102.3 mL/min (90-130) 06/27/22 16:03 Glucose 98 mg/dL (65-115) 06/27/22 16:03 Calculated Osmolality 289 mOsm/kg (285-295) 06/27/22 16:03 Calcium 9.2 mg/dL (8.5-10.5) 06/27/22 16:03 Total Bilirubin 0.2 mg/dL (0.15-1.2) 06/27/22 16:03 AST 47 U/L (0-40) H 06/27/22 16:03 ALT 73 U/L (0-41) H 06/27/22 16:03 Alkaline Phosphatase 122 U/L (40-130) 06/27/22 16:03 Total Protein 7.1 g/dL (6.6-8.7) 06/27/22 16:03 Albumin 4.1 g/dL (3.5-5.2) 06/27/22 16:03 Globulin 3.0 g/dL (1.3-4.6) 06/27/22 16:03 Lipase 104 U/L (13-60) H 06/27/22 16:03 Urine Color Dark yellow (Yellow) 06/27/22 15:55 Urine Appearance Clear (CLEAR) 06/27/22 15:55 Urine pH 5 (5-7) 06/27/22 15:55 Ur Specific [place] 1.025 (1.005-1.030) 06/27/22 15:55 Urine Protein Neg (Negative) 06/27/22 15:55 Urine Glucose (UA) Norm (Normal) 06/27/22 15:55 Urine Ketones Negative (Negative) 06/27/22 15:55 Urine Blood Neg (Negative) 06/27/22 15:55 Urine Nitrate Negative (Negative) 06/27/22 15:55 Urine Bilirubin 1+ (Negative) H 06/27/22 15:55 Urine Urobilinogen 1 mg/dL (Negative) H 06/27/22 15:55 Ur Leukocyte Esterase Negative (Negative) 06/27/22 15:55 Discharge Plan Discharge Patient Disposition: Home Clinical Impression: Abdominal pain Condition: Stable Prescriptions: New prednisone 50 mg tablet 50 mg PO DAILY Qty: 5 0RF ondansetron 4 mg tablet,disintegrating 4 mg PO Q6H PRN (Reason: nausea and vomiting) Qty: 14 0RF No Action Humira 40 mg/0.8 mL Syringe Kit See Rx Instructions .ROUTE .COMPLEX Rx Instructions: 90 mg subcutaneously [id number] hydrochlorothiazide 25 mg Tablet 25 mg PO CONT Hold Instructions: Resume on 09/29/20. See primary care doctor about low blood pressure before starting this medicine again. Zoloft 100 mg Tablet 150 mg PO DAILY 30 Days Qty: 45 0RF Zyprexa 10 mg Tablet 10 mg PO QPM 30 Days Qty: 30 0RF Depakote ER 500 mg tablet extended release 24 hr 500 mg PO BID 30 Days Qty: 60 0RF promethazine 25 mg Tablet 25 mg PO Q6H PRN (Reason: Nausea) 10 Days Qty: 40 0RF Discharge Orders: Discharge ED (Routine); Ordered 06/27/22 Ordered By: Ezequiel Osorio Referrals: Nora Martinez [Primary Care Provider] - Discharge Diet: Advance as tolerated Discharge Activity: Resume usual activity Patient Instructions: Abdominal Pain (ED) Coding Level of Care Code ED [facility] for Kate Palacios
[2022-06-27] MEDS: dexamethasone 10 mg/mL INJ IM (16:14)
[2022-06-27] MEDS: ondansetron 2 mg/ML SDV 2 mL 4 MG IVP (16:14)
[2022-06-27] MEDS: morphine 4 mg/mL SDV 1 mL IVP (16:15)
[2022-06-27 16:18] LABS: Basophils # 0.1 10^3/uL (0.0-0.1); Basophils % 0.9 %; Eosinophils # 0.1 10^3/uL (0.0-0.8); Eosinophils % 1.7 %; Hematocrit 39.8 % (42.0-52.0); Hemoglobin 11.1 g/dL (11.7-16.6); Lymphocytes # 1.9 10^3/uL (0.8-4.8); Lymphocytes % 34.4 %; Mean Corpuscular HGB Conc 27.9 g/dL (30.0-36.0); Mean Corpuscular Hemoglobin 22.6 pg (28.0-34.0); Mean Corpuscular Volume 81.1 fl (80-94); Mean Platelet Volume 9.1 fL (7.4-10.4); Monocytes # 0.6 10^3/uL (0.2-0.9); Monocytes % 11.5 %; Neutrophils # 2.78 10^3/uL (1.8-7.7); Neutrophils % 51.3 %; Nucleated Red Blood Cells % 0 %; Platelet Count 206 10^3/cmm (130-400); Red Blood Count 4.91 10^6/uL (4.1-5.3); Red Cell Distribution Width 17.4 % (12.1-15.1); White Blood Count 5.4 10^3/uL (4.0-10.0)
[2022-06-27 16:18] LABS: Add Urine Microscopic? NO; Charge for UA Resulting for Rev
[2022-06-27 16:22] LABS: Bilirubin Urine 1+ (Negative); Blood Urine Neg (Negative); Glucose Urine UA Norm (Normal); Ketones Urine Negative (Negative); Leukocyte Esterase Urine Negative (Negative); Nitrate Urine Negative (Negative); Protein Urine Neg (Negative); Specific Gravity, Urine 1.025 (1.005-1.030); Urine Appearance Clear (CLEAR); Urine Color Dark Yellow (Yellow); Urobilinogen Urine 1 mg/dL (Negative); pH Urine 5 (5-7)
[2022-06-27 16:24] VITALS: O2SAT 98
[2022-06-27 16:44] LABS: Alanine Aminotransferase 73 U/L (0-41); Albumin Level 4.1 g/dL (3.5-5.2); Alkaline Phosphatase 122 U/L (40-130); Anion Gap 17.4 (5-19); Aspartate Amino Transferase 47 U/L (0-40); Blood Urea Nitrogen 21 mg/dL (6-20); Calcium 9.2 mg/dL (8.5-10.5); Carbon Dioxide 24 mmol/L (22-29); Chloride 101 mmol/L (98-107); Glomerular Filtration Rate 102.3 mL/min (90-130); Glucose 98 mg/dL (65-115); Lipase 104 U/L (13-60); Osmolality Calculated 289 mOsm/kg (285-295); Potassium 4.4 mmol/L (3.5-5.1); Sodium 138 mmol/L (136-145); Total Bilirubin 0.2 mg/dL (0.15-1.2); Total Protein 7.1 g/dL (6.6-8.7)
[2022-06-27 17:10] VITALS: BP 109/70; PULSE 81; RESP 18; O2SAT 95
== END 2022-06-27 17:12 | disposition home or self-care (01) ==
PROVIDERS: Emergency Provider Emergency Medicine
DX: R10.9 Unspecified abdominal pain (principal); K50.90 Crohn's disease, unspecified, without complications; F17.210 Nicotine dependence, cigarettes, uncomplicated
CPT/HCPCS: 36415; 80053; 81003; 83690; 85025; 96372; 96374; 96375; 99284; J1100; J2270; J2405